=== PATIENT | female | born 1985 | race Caucasian/White ===

== ENCOUNTER 2019-03-14 13:02 | Emergency (ER) | payer OTHER ==
[2019-03-14 13:12] VITALS: BP 122/73
--- NOTE | 2019-03-14 14:06 | ED Physician Documentation ---
PD HPI HEENT - Stated complaint Stated Complaint: RT SIDE FACIAL PAIN, CONGESTION - Chief complaint Chief Complaint: Heent - History obtained from History obtained from: Patient - History of Present Illness Timing - onset: Today Timing - duration: Days (8) Timing - details: Gradual onset, Still present Associated symptoms: Fever (Subjective). No: Congestion, Rhinorrhea, Unable to swallow Recently seen: Not recently seen - Additional information Additional information: This a 34-year-old woman who presents because she thinks she may have a sinus infection. She says she has been sick for about 8 days with, some sniffles she is blowing green mucus out of her nose she is felt feverish and chilled and then this morning around 2 AM she started to have pain along the maxillary ridge of her right cheek not it is actually a little bit lower than the sinus. She took 800 mg of ibuprofen and then took 2 Tylenol this morning. She has a right-sided sore throat and feels some postnasal drip. Denies any ear pain and there is no tooth pain. No left-sided facial pain. Her kids have been ill but they seemed to be improving. Their vaccines are up-to-date. She has a 3-year-old that is in preschool. She denies coughing. She has not noted any rash. Review of Systems Constitutional: reports: Fever (Subjective), Chills Ears: denies: Ear pain Nose: denies: Rhinorrhea / runny nose, Congestion Throat: reports: Sore throat (She is status post tonsillectomy). denies: Dental pain / toothache, Oral lesions / sores Respiratory: denies: Cough GI: denies: Nausea : denies: Now EGA Skin: denies: Rash PD PAST MEDICAL HISTORY - Present Medications Home Medications: Ambulatory Orders Medication Instructions Recorded Confirmed Amoxicillin 875 mg PO BID #20 tablet 03/14/19 - Allergies Allergies/Adverse Reactions: Allergies Allergy/AdvReac Type Severity Reaction Status Date / Time No Known Drug Allergies Allergy Verified 03/14/19 13:10 PD ED PE NORMAL - Vitals Vital signs reviewed: Yes - General General: Alert and oriented X 3, No acute distress, Well developed/nourished - HEENT HEENT: Atraumatic, PERRL, EOMI, Ears normal, Moist mucous membranes, Other (She is status post tonsillectomy. There is an ulcerated lesion on the posterior tonsillar pillar of the right tonsil with surrounding erythema but no tonsillar pillar asymmetry. No Kop[place] spots. No conjunctival injection.) - Neck Neck: Supple, no meningeal sign, No bony TTP, No adenopathy - Cardiac Cardiac: RRR, No murmur, Strong equal pulses - Respiratory Respiratory: No respiratory distress, Clear bilaterally - Derm Derm: Other (There is an erythematous rash noted on her neck upper chest and back. The periphery of this has some maculopapular appearance while the more central areas are confluent. It is not raised.) - Neuro Neuro: Alert and oriented X 3, pancake professional 2-12 intact, No motor deficit, No sensory deficit, Normal speech - Psych Psych: Normal mood, Normal affect Results - Vitals Vitals: Vital Signs - 24 hr 03/14/19 03/14/19 13:11 14:05 Temperature 36.8 C 37.0 C Heart Rate 79 Respiratory 14 Rate Blood Pressure 122/73 O2 Saturation 100 Oxygen O2 Source Room air - Labs Labs: Laboratory Tests 03/14/19 14:10 Group A Strep Rapid Negative PD MEDICAL DECISION MAKING - ED course Complexity details: reviewed results, d/w patient ED course: Repeat temp was normal. Strep screen was negative. At this time I really think her pain is coming from that ulcerated lesion on the tonsillar pillar and is most likely viral. When I went back in the rash was actually resolved she really felt like it was a bit of a heat rash because she was feeling flushed. I do not see any indication for antibiotics at this time she is afebrile and I have a reason for her to have pain along the jawline. I have encouraged her to look in the back of the throat so she can understand what is causing the pain. I will provide a backup prescription for amoxicillin in case her symptoms are not improving or worsening with purulent nasal discharge and fever. Departure - Departure Disposition: 01 Home, Self Care Clinical Impression: Sore throat, Viral syndrome Condition: Good Instructions: ED Viral Syndrome Follow-Up: Klaus Brower MD [Primary Care Provider] - Prescriptions: Amoxicillin 875 mg PO BID #20 tablet Comments: Salt water gargles. Take ibuprofen for the pain. At this point I do not see any indication for you to take antibiotics but if you have a thick green nasal discharge particularly if there is blood in it associated with the fever and increasing sinus pain you have get been given a prescription for amoxicillin that you can start.
[2019-03-14 14:45] LABS: RAPID STREP SCREEN Negative (Negative)
== END 2019-03-14 15:21 | disposition home or self-care (01) ==
LOC: ED 13:02
DX: J02.9 Acute pharyngitis, unspecified (principal); B34.9 Viral infection, unspecified; J35.8 Other chronic diseases of tonsils and adenoids; R21 Rash and other nonspecific skin eruption
CPT/HCPCS: 87070; 87430; 99283; 99284